=== PATIENT | male | born 1990 | race Caucasian/White ===

== ENCOUNTER 2025-03-20 05:13 | Emergency (ER) | payer OTHER ==
[~2025-03-20] VITALS: Ht 170.2 cm; Wt 71.0 kg
[2025-03-20 05:19] VITALS: O2SAT 98
[2025-03-20 05:58] LABS: BASOPHILS % 0.4 % (0.0-2.0); EOSINOPHILS % 0.2 % (0.0-5.0); HEMATOCRIT. 50.7 % (42.0-52.0); HEMOGLOBIN. 17.1 g/dL (14.0-18.0); LYMPHOCYTES % 7.4 % (20.0-50.0); MEAN PLATELET VOLUME 7.9 fl (7.4-10.4); MONOCYTES % 7.0 % (2.0-8.0); NEUTROPHILS % 85.0 % (40.0-76.0); PLATELET 234 x1000/uL (130-400); RED BLOOD CELL COUNT 5.36 mill/uL (4.7-6.1); RED CELL DISTRIBUTION WIDTH 15.0 % (11.6-14.6)
[2025-03-20 06:15] LABS: CREATININE 1.1 mg/dL (0.6-1.3); UREA NITROGEN BLOOD 11 mg/dL (9-23)
[2025-03-20 06:21] LABS: *AMPHETAMINES SCREEN URINE NEGATIVE (NEGATIVE); *BARBITURATES SCREEN URINE NEGATIVE (NEGATIVE); *BENZODIAZEPINES SCREEN URINE NEGATIVE (NEGATIVE); *COCAINE SCREEN URINE NEGATIVE (NEGATIVE)
[2025-03-20 06:22] LABS: CANNABINOID URINE SCREEN PRESUMPTIVE POSITIVE (NEGATIVE); ECSTASY MDMA SCREEN URINE NEGATIVE (NEGATIVE); METHADONE URINE SCREEN NEGATIVE (NEGATIVE); OPIATES URINE SCREEN NEGATIVE (NEGATIVE); PHENCYCLIDINE URINE SCREEN NEGATIVE (NEGATIVE)
[2025-03-20 10:00] VITALS: TEMP 36.9
[2025-03-20] MEDS: OLANZAPINE 10 MG/VIAL IM ONE (11:30)
[2025-03-20] MEDS: LORAZEPAM 2MG/ML UD SYRINGE IM SCH (11:45)
[2025-03-20] MEDS ORDERED: HYDROXYZINE 25MG TABLET PO PRN (12:00)
[2025-03-20] MEDS: OLANZAPINE 5MG TABLET PO SCH (12:00)
[2025-03-20 13:22] VITALS: BP 121/69; PULSE 112; RESP 14; O2SAT 95
== END 2025-03-20 17:00 ==
LOC: ER 05:13
DX: R07.89 Other chest pain (principal); F41.9 Anxiety disorder, unspecified; Z59.00 Homelessness unspecified; Z79.899 Other long term (current) drug therapy; Z20.822 Contact with and (suspected) exposure to COVID-19
CPT/HCPCS: 80305; 80048; 80307; 80329; 80320; 85025; 36415; 93005; 96372; 99291; 87426; J3490; J2060; Z7610 ×2; G0480